=== PATIENT | female | born 1980 | race Caucasian/White ===

== ENCOUNTER 2017-04-14 17:21 | Emergency (ER) | payer OTHER ==
[~2017-04-14] VITALS: Ht 167.6 cm; Wt 75.6 kg
[~2017-04-14 17:21] MED LIST: AUGMENTIN875 MG PO; BENADRYL25 MG PO; ENDOCET 5-3251 EACH PO; IMITREX100 MG PO; MICROGESTIN FE1 EAC1 PO; MOTRIN800 MG PO; MULTICHEW CHEW1 EACH PO; Motrin PO; PRENATAL VITAM1 EA11 PO; PROTONIX40 MG PO; TYLENOL EXTRA500 MG PO
[2017-04-14 17:47] VITALS: BP 124/78
[2017-04-14 17:51] LABS: EOSINOPHIL (%) 0.9 % (0-5); EOSINOPHIL COUNT 0.1 K/uL (0-0.3); HEMATOCRIT 39.8 % (36.0-46.0); IMMATURE GRANULOCYTE (%) 0.6 % (0.0-0.7); IMMATURE GRANULOCYTE COUNT 0.1 K/uL; INSTRUMENT ABS NEUTROPHIL CT 6.5 K/uL; LYMPHOCYTE COUNT 1.6 K/uL (1.0-2.8); MCH 31.3 PG (29.0-34.0); MCHC 33.7 G/DL (30.0-36.0); MEAN PLAT.VOLUME 9.2 uM^3 (9.5-12.4); MONOCYTE (%) 5.3 % (3-12); MONOCYTE COUNT 0.5 K/uL (0-0.8); NEUTROPHIL (%) 74.7 % (45-76); NEUTROPHIL COUNT 6.5 K/uL (1.8-6.4); PLATELET COUNT 181 K/uL (156-360); RBC DIS.WIDTH-SD 41.3 % (39-53); RED BLOOD COUNT 4.28 M/uL (3.80-5.20); WHITE BLOOD COUNT 8.7 K/uL (4.1-10.2)
[2017-04-14 17:59] LABS: CHLORIDE 103 mEq/L (99-109); POTASSIUM 4.1 mEq/L (3.7-5.4); SODIUM 140 mEq/L (136-147)
[2017-04-14 18:03] LABS: ANION GAP 12 MEQ/L (2-14); TOTAL BILIRUBIN 0.9 mg/dL (0.0-1.0)
[2017-04-14 18:05] LABS: ALKALINE PHOSPHATASE 87 IU/L (3-129); GFR ESTIMATE (CALCULATED) > 59 mL/min/
[2017-04-14 18:06] LABS: UREA NITROGEN (BUN) 13 mg/dL (9-23)
[2017-04-14 18:07] LABS: DIRECT BILIRUBIN 0.3 mg/dL (0.0-0.3)
[2017-04-14 18:14] LABS: QUANTITATIVE HCG < 4.0 MIU/ML
[2017-04-14 18:32] LABS: GLUCOSE 130 mg/dL (70-99)
== END 2017-04-14 17:47 | disposition home or self-care (01) ==
LOC: EME 17:21
PROVIDERS: Nurse Practitioner Family
DX: S61.231A Puncture wound without foreign body of left index finger without damage to nail, initial encounter (principal); Z77.21 Contact with and (suspected) exposure to potentially hazardous body fluids; W46.0XXA Contact with hypodermic needle, initial encounter; Y99.0 Civilian activity done for income or pay; F41.9 Anxiety disorder, unspecified
CPT/HCPCS: 80048; 80076; 84702; 85025; 86703; 86706; 86803; 99281; 99283